=== PATIENT | male | born 1995 | race American Indian/Alaskan Native ===

== ENCOUNTER 2017-10-14 23:40 | Emergency (ER) | payer OTHER ==
[2017-10-15] MEDS ORDERED: MOTRIN PO ONE (00:53)
--- NOTE | 2017-10-15 01:54 | XRay Report ---
FINAL REPORT PROCEDURE: XR SPINE CERVICAL 2-3V TECHNIQUE: Cervical spine radiographs, minimum of four views, including AP, lateral and bilateral oblique projections. HISTORY: neck pain COMPARISON: No prior studies are available for comparison. FINDINGS: Prevertebral soft tissues: Normal. Alignment: Normal. Vertebral body heights/Disk spaces: Normal. Fracture(s): None. Neural foramina: Normal. Facets: Normal. Bone mineralization: Normal. IMPRESSION: Normal Examination.
--- NOTE | 2017-10-15 02:00 | XRay Report ---
FINAL REPORT PROCEDURE: XR SPINE LUMBOSACRAL 2-3V TECHNIQUE: Lumbar spine radiographs, including AP, lateral, and lumbosacral spot views. CPT 19618 HISTORY: lower back pain COMPARISON: No prior studies are available for comparison. FINDINGS: Alignment: There is mild scoliosis with convexity to the left. There is no malalignment of the spine.. Vertebral body heights/Disk spaces: Normal. Fracture(s): None. Facets: Normal. Bone mineralization: Normal. IMPRESSION: There is no acute traumatic injury. There is mild levoscoliosis..
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
[2017-10-15 05:39] VITALS: BP 117/68
== END 2017-10-15 05:38 | disposition home or self-care (01) ==
LOC: ED 23:40
DX: S13.4XXA Sprain of ligaments of cervical spine, initial encounter (principal); M54.5 Low back pain; V89.2XXA Person injured in unspecified motor-vehicle accident, traffic, initial encounter; Y93.89 Activity, other specified; Y92.89 Other specified places as the place of occurrence of the external cause; Y99.8 Other external cause status
CPT/HCPCS: 72040; 72100; 99283